=== PATIENT | female | born 1950 | race Two or more races ===

== ENCOUNTER 2024-04-07 10:42 | Outpatient (CLI) | payer OTHER | END 2024-04-07 10:43 | disposition home or self-care (01) | LOC: NUCLEAR 10:42 | PROVIDERS: ATTEND Psychiatry & Neurology Clinical Neurophysiology | DX: G31.84 Mild cognitive impairment of uncertain or unknown etiology (principal); G30.1 Alzheimer's disease with late onset | CPT/HCPCS: 78803; A9557 ==